=== PATIENT | male | born 1965 | race Caucasian/White ===

== ENCOUNTER 2019-04-07 16:39 | Emergency (ER) | payer BC, OTHER ==
[~2019-04-07] VITALS: Ht 177.8 cm; Wt 90.6 kg
[2019-04-07 16:49] VITALS: BP 151/97
--- NOTE | 2019-04-07 17:17 | NUR ---
PT TO IMAGING
--- NOTE | 2019-04-07 17:38 | NUR ---
PT BACK FROM IMAGING.
--- NOTE | 2019-04-07 18:08 | NUR ---
Patient/Caregiver given discharge instructions and they have confirmed that they understand the instructions. Patient ambulatory with steady gait. PT LEFT WITH ALL PERSONAL BELONGINGS.
== END 2019-04-07 18:10 | disposition home or self-care (01) ==
LOC: ED 18:00
DX: L03.115 Cellulitis of right lower limb (principal); I10 Essential (primary) hypertension; M19.90 Unspecified osteoarthritis, unspecified site
CPT/HCPCS: 99284